=== PATIENT | female | born 1970 | race Asian ===

== ENCOUNTER → 2024-05-13 | Day surgery (SDC) | payer BC | END | disposition home or self-care (01) | LOC: JMAMMO-SUR 14:23 | PROVIDERS: ATTEND Surgery | PROC: BH01ZZZ Plain Radiography of Left Breast (ICD-10-PCS; principal; 2024-05-13) | DX: C50.912 Malignant neoplasm of unspecified site of left female breast (principal) | CPT/HCPCS: 19281; A4648 ==

== ENCOUNTER 2024-05-16 04:30 | Day surgery (SDC) | payer BC ==
[2024-05-13 11:59] VITALS: BMI 22.6
[2024-05-16] MEDS ORDERED: LIDOCAINE HCL 1%, 10 MG/ML (20ML VIAL) ONE (13:27)
[2024-05-16] MEDS ORDERED: METHYLENE BLUE 50 MG/10 ML AMPUL ONE (13:27)
[2024-05-16] MEDS ORDERED: ISOSULFAN BLUE 50 MG/5 ML VIAL SQ ONE (13:29)
[2024-05-16] MEDS ORDERED: FENTANYL CITRATE/PF 50 MCG/ML VIAL ONE ×3 (13:36→15:44)
[2024-05-16] MEDS ORDERED: PROPOFOL 20 ML ONE (13:36)
[2024-05-16] MEDS ORDERED: MIDAZOLAM HCL 2 MG/2 ML SINGLE DOSE VIAL ONE (13:36)
[2024-05-16] MEDS: ceFAZolin SODIUM 1 GM VIAL IVPB ONE (14:07)
[2024-05-16] MEDS: LIDOCAINE HCL 1%, 10 MG/ML (20ML VIAL) INF ONE ×3 (14:20)
[2024-05-16] MEDS ORDERED: ONDANSETRON 4 MG/2 ML VIAL ONE ×2 (15:41→16:30)
[2024-05-16] MEDS ORDERED: oxyCODONE HCL 5 MG TABLET PO PRN (15:57)
[2024-05-16] MEDS: ONDANSETRON 4 MG/2 ML VIAL IVPUSH PRN (16:32)
[2024-05-16] MEDS ORDERED: METOCLOPRAMIDE HCL INJECTION 10 MG/2 ML VIAL IM ONE (19:07)
[2024-05-16] MEDS: METOCLOPRAMIDE HCL INJECTION 10 MG/2 ML VIAL IVPB ONE (19:15)
[2024-05-16 19:23] VITALS: RESP 16
[2024-05-16 20:31] VITALS: BP 97/61; PULSE 94; TEMP 97.3
== END 2024-05-16 20:30 | disposition home or self-care (01) ==
LOC: JASU-SURG 04:30
PROVIDERS: ATTEND Surgery
PROC: 07B60ZX Excision of Left Axillary Lymphatic, Open Approach, Diagnostic (ICD-10-PCS; 2024-05-16)
PROC: C71L1ZZ Planar Nuclear Medicine Imaging of Upper Chest Lymphatics using Technetium 99m (Tc-99m) (ICD-10-PCS; 2024-05-16)
PROC: 0HBU0ZZ Excision of Left Breast, Open Approach (ICD-10-PCS; principal; 2024-05-16 12:00)
DX: C50.919 Malignant neoplasm of unspecified site of unspecified female breast (principal)
CPT/HCPCS: 76098-TC-FY; 78195-TC; 82962; 88307-TC; 88341-TC; 88342-TC; 94760; A9541; Q9968